=== PATIENT | male | born 1950 | race Caucasian/White ===

== ENCOUNTER → 2016-09-17 | Day surgery (SDC) | payer MEDICARE, BC ==
[~2016-09-17] MED LIST: ASPIRIN81 M2 PO; HYDROCHLOROTH12.5 MG PO; LISINOPRIL-HCTZ1 T18 PO; METHIMAZOLE5 MG PO; SYNTHROID125 PO; VITAMIN B PO
--- NOTE | ~2016-09-17 | OR ---
Unit #: [id number] #: [id number] Patient: BOB METZGER [id number] [address] [place], [place] [address] [id number] O MR#: [id number] NAME: BOB METZGER ROOM: Date of Procedure: 09/17/2016 Admission Date: 09/17/2016 Surgeon: Anthony Walls M.D. : 1950 Attending Physician: Anthony Walls M.D. Referring Physician: Anthony Walls M.D. Primary Care Physician: Robyn Fontana M.D. OPERATIVE REPORT PRIMARY CARE PHYSICIAN Robyn Fontana M.D. PREOPERATIVE DIAGNOSES The patient has come for surveillance colonoscopy. He has personal history of colonic polyps removed in the past. PROCEDURES PERFORMED Colonoscopy and polypectomy. POSTOPERATIVE DIAGNOSES 1. The patient had two sessile polyps, the first one was a diminutive polyp in the mid ascending colon. This was removed using cold biopsy forceps. A second polyp was about 7 mm in size in the mid descending colon. It was also sessile and was removed using snare polypectomy. Both the polyps were sent for histology. 2. Rest of the examination up to cecum and terminal ileum was normal. The quality of the prep was excellent. No diverticula or hemorrhoids were seen. RECOMMENDATIONS Follow up the results of polyp histology and consider repeat colonoscopy in 5 years. SEDATION USED MAC. DESCRIPTION OF PROCEDURE Following detailed explanation of potential risks and complications of a colonoscopy, namely perforation, bleeding, and complication related to sedation, the patient was brought to GI lab and laid in the left lateral decubitus position. A digital rectal examination was performed, which was normal. Lubricated tip of the Olympus video colonoscope was inserted through the anus and advanced under direct vision. The scope was advanced past rectosigmoid into descending colon. No diverticula were noted in this area. The scope tip was then navigated all the way up to cecum with visualization of the ileocecal valve and the appendiceal orifice. Preparation was excellent with good visualization and photodocumentation was obtained. Last few inches of the terminal ileum were also visualized after intubation of the ileocecal valve and appeared normal. Successive segments of the colonic mucosa were examined upon withdrawal. A diminutive polyp was noted in the mid ascending colon. The latter was Unit #: [id number] #: [id number] Patient: BOB METZGER removed using cold biopsy forceps. A second polyp which was about 7 mm in size was noted in the mid descending colon. This was also removed using snare polypectomy. Both the polyps were retrieved and sent for histology. Excellent hemostasis was achieved and photodocumentation was obtained. No additional polyps were noted. The patient did not have any diverticulosis nor any internal hemorrhoids. The scope was then withdrawn and the patient returned to the recovery area. He tolerated the procedure without any postprocedure complications. Dictated by... Letitia Galeana/bc TD: 09/17/2016 19:43 JOB #: [id number] OPERATIVE REPORT Page 1 of 1 X Anthony Walls MD X PROCEDURE OPERATIVE NOTE
== END | disposition home or self-care (01) ==
LOC: COPS 09:36
DX: Z12.11 Encounter for screening for malignant neoplasm of colon (principal); D12.2 Benign neoplasm of ascending colon; D12.4 Benign neoplasm of descending colon; Z86.010 Personal history of colon polyps; I10 Essential (primary) hypertension; E03.9 Hypothyroidism, unspecified
CPT/HCPCS: 88305